=== PATIENT | male | born 1970 | race Caucasian/White ===

== ENCOUNTER 2024-01-05 07:11 | Emergency (ER) | payer BC ==
[2024-01-05] MEDS: LORazepam 1 MG Tab PO ONE (07:47)
[2024-01-05 08:11] LABS: BASOPHILS PERCENT AUTO 0.6 % (0.0-1.0); EOSINOPHILS ABSOLUTE AUTO 0.1 K/mm3 (0.0-0.4); HEMATOCRIT 46.2 % (42.0-52.0); HEMOGLOBIN 16.1 gm/dl (14.0-18.0); IMMATURE GRAN ABSOLUTE AUTO 0.05 K/mm3 (0.00-0.05); LYMPHOCYTES ABSOLUTE AUTO 1.4 K/mm3 (1.0-4.8); LYMPHOCYTES PERCENT AUTO 30.1 % (24.0-44.0); MEAN CORPUSCULAR HGB CONC 34.8 g/dl (32.0-36.0); MEAN CORPUSCULAR VOLUME 86.2 fl (83.0-99.0); MEAN PLATELET VOLUME 9.1 fl (9.4-12.4); MONOCYTES ABSOLUTE AUTO 0.3 K/mm3 (0.0-0.8); MONOCYTES PERCENT AUTO 6.3 % (0.0-8.0); NEUTROPHILS ABSOLUTE AUTO 2.9 K/mm3 (1.8-7.7); PLATELET COUNT,PLT 148 K/mm3 (150-400); RED BLOOD CELL COUNT 5.36 M/mm3 (4.52-5.90); WHITE BLOOD CELL COUNT,WBC 4.78 K/mm3 (3.9-11.3)
[2024-01-05 08:20] LABS: A/G RATIO 1.2 (1-2); ALBUMIN 4.1 g/dl (3.4-5.0); BILIRUBIN TOTAL 0.9 mg/dL (0.2-1.0); BUN/CREATININE RATIO 20.9 (14-18); CALCIUM 9.5 mg/dL (8.5-10.1); CREATININE 1.1 mg/dL (0.7-1.3); EST CRCL DRUG DOSING (CG) 92.37 mL/min; PROTEIN TOTAL,TP 7.6 g/dl (6.4-8.2)
== END 2024-01-05 08:50 | disposition home or self-care (01) ==
LOC: JD.ED 07:11
DX: R07.89 Other chest pain (principal); Z87.891 Personal history of nicotine dependence
CPT/HCPCS: 36415; 71045; 80053; 84484; 85025; 93005; 99285; A9270